=== PATIENT | female | born 1970 | race African-American/Black ===

== ENCOUNTER 2016-10-10 11:25 | Outpatient (CLI) | payer MEDICARE, MEDICAID ==
[2016-10-10 13:59] LABS: Anion Gap 16 mmol/L (10-20); BUN (Urea Nitrogen) 16 mg/dL (7.0-18.7); Calc. Creatinine Clearance 0 mL/min (70-130); Calcium 9.5 mg/dL (7.8-10.44); Carbon Dioxide 31 mmol/L (22-29); Chloride 96 mmol/L (98-107); Estimated GFR-MDRD 85
--- NOTE | 2016-10-10 16:05 | ULT ---
RIGHT UPPER QUADRANT ULTRASOUND: Date: 10-10-16 Technique: Ultrasonography of the right upper quadrant of the abdomen was performed for evaluation of right upper quadrant pain. Documentary images and worksheets were provided and reviewed. FINDINGS: The liver is large, measuring 19 cm in oblique sagittal dimension. Gallbladder is not seen optimall y, internally there is no gross mass or dilated ducts. What appears to be the gallbladder is small and contracted and shadowing. This is presumed to be a small contracted gallbladder full of stones. The common bile duct was borderline in size at 5-6 mm. The right kidney appears normal and was 11 .2 cm long. The aorta is normal in caliber. Only a part of the pancreas was visible in the midline . The visible portion appears normal. Doppler flow of the portal vein shows portal venous flow goi ng towards the liver as expected. IMPRESSION: 1. Gallbladder not clearly seen but an area of intense shadowing is seen in the gallbladder fossa, presumed to be a small contracted gallbladder full of stones. 2. The liver is enlarged. POS: HOME
== END 2016-10-10 11:26 | disposition home or self-care (01) ==
LOC: BURULT 11:25
PROVIDERS: ATTEND Family Medicine
DX: R10.11 Right upper quadrant pain (principal); Z79.899 Other long term (current) drug therapy; R16.0 Hepatomegaly, not elsewhere classified
CPT/HCPCS: 36415; 76705; 80048

== ENCOUNTER 2016-10-13 19:58 | Emergency (ER) | payer MEDICARE, MEDICAID ==
[2016-10-13 20:57] LABS: ALT (SGPT) 26 U/L (0-55); AST (SGOT) 29 U/L (5-34); Alkaline Phosphatase 209 U/L (40-150); Anion Gap 13 mmol/L (10-20); BUN (Urea Nitrogen) 15 mg/dL (7.0-18.7); Bilirubin, Total 0.4 mg/dL (0.2-1.2); Calc. Creatinine Clearance 0 mL/min (70-130); Calcium 8.8 mg/dL (7.8-10.44); Carbon Dioxide 28 mmol/L (22-29); Chloride 101 mmol/L (98-107); Estimated GFR-MDRD Greater than 90; Globulin 4.3 g/dL (2.4-3.5); Protein, Total 7.9 g/dL (6.0-8.3)
[2016-10-13 20:59] LABS: Troponin I 0.059 ng/mL (< 0.028)
[2016-10-13] MEDS ORDERED: Potassium Chloride 20 MEQ TAB ONE (21:08)
[2016-10-13 21:09] LABS: #Eosinphils 0.1 thou/uL (0.0-0.7); #Monocytes 0.7 thou/uL (0.11-0.59); #Neutrophils 4.2 thou/uL (1.40-6.50); %Basophils 0.6 % (0.0-1.0); %Eosinophils 1.3 % (0.0-10.0); %Monocytes 11.3 % (0.0-10.0); Hematocrit 40.1 % (36.0-47.0); Mean Platelet Volume 6.9 fL (7.4-10.4); White Blood Cell (WBC) Count 5.9 thou/uL (4.8-10.8)
[2016-10-13 21:10] LABS: Crenated RBC SLIGHT = 1-5 cells (100X) (None Seen); Elliptocytes MODERATE= 6-15 cells (100X) (0-1/hpf); Hypochromia SLIGHT = 6-15 cells (100X) (0-5/hpf); Polychromasia SLIGHT = 2-3 cells (100X) (0-2/hpf); Schistocytes SLIGHT = 2-5 cells (100X) (0-1/hpf)
[2016-10-13] MEDS ORDERED: Phenytoin Sodium 100 MG/2 ML VIAL ONE (21:17)
--- NOTE | 2016-10-13 22:06 | ERRECORD ---
[facility] EMERGENCY RECORD HPI SEIZURE (20:21 [facility]) CHIEF COMPLAINT: Patient presents for evaluation of seizure. HISTORIAN: History provided by patient, 46F presents to the ED with reports of two seizures that occurred today. States she has had increased seizures over the past week, and reports that she saw her PMD who ordered a Dilantin level, but she does not know the results yet. She denies chest pain or shortness of breath. First seizure occurred while she was in bed, the second in the shower. She denies hitting her head. Unwitnessed. States the aura felt similar to other seizures she has had. Denies traumatic injury. LOCATION: Symptoms are generalized. QUALITY: Seizure quality described as grand-mal, multiple episodes. TIME COURSE: Sudden onset of symptoms, Symptoms are improving, are intermittent. ASSOCIATED WITH: No associated symptoms, Denies any other complaints. RELIEVED BY: Nothing tried for relief. [facility] ([facility] CONSTITUTIONAL: Negative constitutional review of systems, Historian denies chills, denies fever. EYES: Negative eye review of systems, Historian denies eye pain, denies vision changes. ENT: Negative ears, nose, throat review of systems, Historian denies rhinorrhea, denies sore throat, denies voice changes. CARDIOVASCULAR: Negative cardiovascular review of systems, Historian denies chest pain, denies palpitations. RESPIRATORY: Negative respiratory review of systems, Historian denies cough, denies shortness of breath. GI: Negative gastrointestinal review of systems, Historian denies abdominal pain, denies constipation, denies diarrhea, denies nausea, denies vomiting. GENITOURINARY FEMALE: Negative genitourinary review of systems, Historian denies dysuria, denies frequency. MUSCULOSKELETAL: Negative musculoskeletal review of systems, Historian denies back pain, denies fall, denies injury. SKIN: Negative skin review of systems, Historian denies rash, denies skin changes. NEUROLOGIC: Historian reports seizures, denies mental status changes, Historian denies paralysis, Historian denies headache, Historian denies paresthesias, Historian denies sensory changes. HEMO/LYMPHATIC: Normal hematologic/lymphatic system review, Historian denies abnormal blood clotting. ALLERGIC/IMMUNOLOGIC: Normal allergy/immunologic system review, Historian denies frequent infections. PAST MEDICAL HISTORY (20:12 [place]) MEDICAL HISTORY: Flu vaccine not up to date, Tetanus immunization up to date, Pneumococcal vaccine up to date, Flu &a-1R&a+25V*p+0X*[id number]*c202B*c15G*c2P*p-0X&a-25V&a+1R Name: Alberta Patricio : 1970 F46 MedRec: [id number] AcctNum: [id number] Prepared: Fei Oct 14, 2016 00:20 by Interface Page 1 of 4 pMD [facility] EMERGENCY RECORD vaccine not up to date, Tetanus not up to date, Pneumococcal vaccine not up to date, Past medical history includes cardiac history, arrhythmia, atrial fibrillation, Past medical history includes history of hyperlipidemia, Past medical history includes history of hypertension.PEPTIC ULCERS, SEIZURES (LAST ONE AUGUST 2015), TIA 2014,. REVIEWED 10/13/16. FEMALE SURGICAL HISTORY: 2 brain surgery Pacemaker placed March 2016 Hip surgery. REVIEWED 10/13/16. PSYCHIATRIC HISTORY: Psychiatric history includes, anxiety, bipolar disorder, depression, Psychiatric history includes patient currently being under outpatient treatment. REVIEWED 10/13/16. SOCIAL HISTORY: Patient denies alcohol use, Patient denies drug use, Patient has no smoking history, Lives at home, with family. REVIEWED 10/13/16. FAMILY HISTORY: Family history is non-contributory to this case. REVIEWED 10/13/16. KNOWN ALLERGIES No Known Allergies (Unconfirmed) No Known Drug Allergies CURRENT MEDICATIONS No recorded medications VITAL SIGNS VITAL SIGNS: BP: 83/58, Pulse: 92, Resp: 19, Temp: 97.7 (Oral), Pain: 0, O2 sat: 99 on Room Air, Time: 10/13/2016 20:06. (20:06 MVIL) BP: 96/70, Pulse: 90, Resp: 20, O2 sat: 99 on Room Air, Time: 10/13/2016 21:49. (21:49 MVIL) BP: 102/62, Pulse: 72, Resp: 20, O2 sat: 99 on Room Air, Time: 10/13/2016 21:50. (21:50 MVIL) PHYSICAL EXAM (20:24 [facility]) CONSTITUTIONAL: Vital signs reviewed, Patient afebrile, Pulse normal, Blood pressure, hypotensive, Respiratory rate normal, Patient appears non toxic, Patient appears pain free, Patient alert and oriented to person, place and time. HEAD: Head exam normal, Head exam included findings of head atraumatic, normocephalic. EYES: Eye exam normal, Eye exam included findings of eyelids normal to inspection, Pupils equally round and reactive to light, Extraocular muscles intact, no nystagmus. ENT: ENT exam normal, Ear exam normal, external ear normal, tympanic membranes normal, no bleeding, Pharynx exam normal, Uvula exam normal, Tonsil exam normal, Mouth exam normal, mucous membranes moist, teeth normal. NECK: Neck exam normal, Neck exam included findings of normal range of motion, Trachea midline, no meningeal signs, no cervical adenopathy, no tenderness. &a-1R&a+25V*p+0X*x5194V*c202B*c15G*c2P*p-0X&a-25V&a+1R Name: Alberta Patricio : 1970 F46 MedRec: [id number] AcctNum: [id number] Prepared: Fei Oct 14, 2016 00:20 by Interface Page 2 of 4 pMD [facility] EMERGENCY RECORD RESPIRATORY CHEST: Respiratory and chest exam normal, Respiratory exam included findings of no respiratory distress, Breath sounds clear. CARDIOVASCULAR: Cardiovascular assessment normal, Cardiovascular exam included findings of heart rate regular rate and rhythm, Heart sounds normal. ABDOMEN FEMALE: Abdominal exam included findings of abdomen nontender, Bowel sounds normal, no distension, no mass, no pulsatile masses, no peritoneal signs, no rigidity, no guarding, no rebound, Rovsing's sign absent. BACK: Back exam normal, Back exam included findings of normal inspection, range of motion normal, no tenderness. UPPER EXTREMITY: Upper extremity exam normal, Upper extremity exam included findings of inspection normal, Range of motion normal, Motor strength normal, Sensation intact, Radial pulse normal. LOWER EXTREMITY: Lower extremity exam normal, Lower extremity exam included findings of inspection normal, Range of motion normal, Motor strength normal, Sensation intact, Posterior tibial pulse normal, Pedal pulse normal. NEURO: Neuro exam normal, Neuro exam findings include patient oriented to person, place and time, Speech normal, Gait normal, Cranial nerves intact, no focal motor deficits, no focal sensory deficits. SKIN: Skin exam normal, Skin exam included findings of skin warm, dry, and normal in color, no rash. PSYCHIATRIC: Psychiatric exam normal, Normal affect. EKG INTERPRETATION (20:25 [facility]) 12 LEAD EKG INTERPRETATION: 12 lead EKG interpreted by Emergency Department Physician at time of study, atrial sensed v paced rhythm. MEDICATION ADMINISTRATION SUMMARY Drug Name: ondansetron HCl intravenous, Dose Ordered: 4 mg, Route: IV Push, Status: Given, Time: 22:18 10/13/2016, Drug Name: Dilantin oral, Dose Ordered: 300 mg, Route: Oral, Status: Given, Time: 21:49 10/13/2016, Drug Name: *sodium chloride 0.9 % intravenous, Dose Ordered: 500 mL, Route: IV Fluid Infusion, Status: Given, Time: 21:13 10/13/2016, Drug Name: potassium chloride oral, Dose Ordered: 40 mEq, Route: Oral, Status: Given, Time: 21:12 10/13/2016, *Additional information available in notes, Detailed record available in Medication Service section. DOCTOR NOTES (21:58 [facility]) TEXT: Patient after a seizure episode. She was neurologically intact during her visit without postictal signs. After a full work up, the notable findings include hypokalemia, a mild troponin increase, and hypotension that resolved with IV fluids. I &a-1R&a+25V*p+0X*[id number]*c202B*c15G*c2P*p-0X&a-25V&a+1R Name: Alberta Patricio : 1970 F46 MedRec: [id number] AcctNum: [id number] Prepared: Fei Oct 14, 2016 00:20 by Interface Page 3 of 4 pMD [facility] EMERGENCY RECORD believe the troponin is likely baseline, and without chest pain or EKG changes, I do not believe that it likely represents ACS. The hypokalemia is unlikely to be related to her presenting complaints. I was concerned about her presenting hypotension, which I believe is medication induced based on the lack of reflex tachycardia. She has no evidence of infection. She reported dizziness/weakness throughout the day, and I believe it is possible that the hypotension is causing the weakness and possibly triggering the increase in seizures. I have advised holding antihypertensives until she can be seen by her stay cutter, and increasing Dilantin to 300mg BID from 300mg in the morning and 200mg at night. patient demonstrated excellent understanding and will make follow up apponitments. PATIENT STATUS: Patient has improved since arrival to emergency department. PATIENT PLAN: The patient will be discharged, The patient will follow up with primary care physician. DATA REVIEWED: Lab data reviewed, Xray data reviewed, Reviewed EKG. PROBLEM LIST No recorded problems DIAGNOSIS (22:14 SHREYA) FINAL: PRIMARY: Seizure, ADDITIONAL: HYPOTENSION UNSPECIFIED. PRESCRIPTION No recorded prescriptions DISPOSITION PATIENT: Disposition Type: Discharge, Disposition: *Discharge Home. (22:14 SHREYA) Patient left the department. (22:31 ORESTES) Solitario: SHREYA=MD Pooja, Noe MVIL=ALEKSANDRA Hensley, Chasity &a-1R&a+25V*p+0X*h9304F*c202B*c15G*c2P*p-0X&a-25V&a+1R Name: Alberta Patricio Bhupinder : 1970 F46 MedRec: [id number] AcctNum: [id number] Prepared: Fei Oct 14, 2016 00:20 by Interface Page 4 of 4 pMD [facility]
--- NOTE | 2016-10-13 22:12 | PICIS ---
[facility] EMERGENCY RECORD TRIAGE (ThuOct 13, 2016 20:06 MVIL) TRIAGE NOTES: C/O TWO SEIZURE EPISODES TODAY UNWITNESSED. (ThuOct 13, 2016 20:06 MVIL) PATIENT: NAME: Alberta Patricio, AGE: 46, GENDER: female, : Thu1970, TIME OF GREET: ThuOct 13, 2016 19:58, PREFERRED LANGUAGE: Dutch, ETHNICITY: Not or , ECODE BILLING MAP: [facility], SSN: [id number], Zip Code: [address], KG WEIGHT: 127.01, HEIGHT/LENGTH: 165.10cm, BMI: 46.59, PHONE: , , , PERSON ID: [id number], PAYMENT: [employer], PCP: DO BELL JOHN SCOTT. (ThuOct 13, 2016 20:06 MVIL) COMPLAINT: SEIZURE. (ThuOct 13, 2016 20:06 MVIL) ADMISSION: URGENCY: 3 Urgent, ADMISSION SOURCE: Home, TRANSPORT: CAR, BED: ER -04. (ThuOct 13, 2016 20:06 MVIL) ASSESSMENT: Assessment: C/O TWO SEIZURE EPISODES TODAY; ONE EPISODE AT 2PM AND ANOTHER AT 7:30PM. PATIENT IS ON DILANTIN MED., Symptoms began 10/13/2016 20:13, Symptoms began 1 hour ago. (20:12 MVIL) PAIN: No complaint of pain. (20:13 MVIL) IMMUNIZATIONS: Flu vaccine not up to date, Tetanus immunization up to date, Pneumococcal vaccine up to date. (20:14 MVIL) SIRS SCORING: Heart Rate 55-109 (0), Temp range 96.8-101.1 (0), respiratory rate 12-24 (0), Mental Status altered: no (0). (20:14 MVIL) TRIAGE SCREENING: Patient denies suicidal ideation, Patient denies presence of domestic violence. (20:14 MVIL) PROVIDERS: TRIAGE NURSE: Chasity Hensley RN. (ThuOct 13, 2016 20:06 MVIL) VITAL SIGNS: BP 83/58, Pulse 92, Resp 19, Temp 97.7, (Oral), Pain 0, O2 Sat 99, on Room Air, Time 10/13/2016 20:06. (20:06 MVIL) PREVIOUS VISIT ALLERGIES: No Known Drug Allergies. (ThuOct 13, 2016 20:06 MVIL) No Known Drug Allergies. (20:12 MVIL) KNOWN ALLERGIES No Known Allergies (Unconfirmed) No Known Drug Allergies CURRENT MEDICATIONS No recorded medications VITAL SIGNS VITAL SIGNS: BP: 83/58, Pulse: 92, Resp: 19, Temp: 97.7 (Oral), Pain: 0, O2 sat: 99 on Room Air, Time: 10/13/2016 20:06. (20:06 MVIL) BP: 96/70, Pulse: 90, Resp: 20, O2 sat: 99 on Room Air, Time: 10/13/2016 21:49. (21:49 MVIL) BP: 102/62, Pulse: 72, Resp: 20, O2 sat: 99 on Room Air, Time: 10/13/2016 21:50. (21:50 MVIL) &a-1R&a+25V*p+0X*p3042U*c202B*c15G*c2P*p-0X&a-25V&a+1R Name: Alberta Patricio : 1970 F46 MedRec: [id number] AcctNum: [id number] Prepared: ThuOct 14, 2016 00:26 by Interface Page 1 of 9 pMD [facility] EMERGENCY RECORD NURSING ASSESSMENT: SEIZURE (20:46 MVIL) NURSING DIAGNOSIS: Nursing diagnosis: SEIZURE. CONSTITUTIONAL: Patient arrives, via hospital wheelchair, STATES HAS UNSTEADY GAIT, Unsteady gait, Assistance to cart, History obtained from patient, Patient appears comfortable, Patient cooperative, Patient alert, Oriented to person, place and time, Skin warm, Skin dry, Skin normal in color, Mucous membranes pink, Mucous membranes moist, Patient is well-groomed, Patient complains of SEIZURE EPISODES X 2 TODAY, ONCE AT 2PM AND ANOTHER AT 7:30PM. BOTH UNWITNESSED AND PATIENT UNABLE TO TELL DURATION OF EACH EPISODE. PATIENT ON DILANTIN MED. WAS RECENTLY AT PMD'S ON THURSDAY AND DILANTIN LEVEL DONE THERE BUT HAS NOT RECEIVED RESULTS BACK FROM THEM YET. PAIN: Patient rates pain as 0 out of 10. SEIZURE: History of seizures, Date of last seizure 10/13/2016 20:49. ENT: no drainage from ears, Dizziness, described as room spinning. SAFETY: Side rails up, Cart/Stretcher in lowest position, Family at bedside, Call light within reach, Hospital ID band on. NURSING PROCEDURE: DISCHARGE NOTE (22:20 MVIL) DISCHARGE: Patient discharged to home, ambulating without assistance, family driving, accompanied by other family member, Summary of Care printed/ provided, Patient requested and was provided an electronic copy of Discharge Instructions, Transition record given to patient, Discharge instructions given to patient, Above person(s) verbalized understanding of discharge instructions and follow-up care. BELONGINGS: Belongings and valuables with patient at time of discharge include:. NURSING PROCEDURE: IV (20:32 MVIL) PATIENT IDENITIFIER: Patient actively involved in identification process, Patient's identity verified by patient stating name, Patient's identity verified by hospital ID bracelet. IV SITE 1: IV therapy indicated for hydration, IV established, to the right antecubital, using a 20 gauge catheter, in one attempt, Saline lock established, Flushed with normal saline (mls): 10MLS, Labs drawn at time of placement, labeled in the presence of the patient and sent to lab. FOLLOW-UP SITE 1: After procedure, 2x3 ensure dressing applied, After procedure, IV line connections checked and properly labeled, After procedure, no drainage at IV site, After procedure, no swelling at IV site, After procedure, no redness at IV site. ORDER DETAILS Order Name: Cardiac Profile w/CKMB & Troponin - I, Status: Active, Time: 20:15 10/13/2016, User: SHREYA, &a-1R&a+25V*p+0X*f0645C*c202B*c15G*c2P*p-0X&a-25V&a+1R Name: Alberta Patricio : 1970 F46 MedRec: [id number] AcctNum: [id number] Prepared: ThuOct 14, 2016 00:26 by Interface Page 2 of 9 pMD [facility] EMERGENCY RECORD - Ordered for: MD Patton Jason, - Entered by: MD Patton Jason - [facility] Oct 13, 2016 20:15, - Quantity: 1, Order Name: CBC with Differential, Status: Active, Time: 20:15 10/13/2016, User: SHREYA, - Ordered for: MD Patton Jason, - Entered by: MD Patton Jason - [facility] Oct 13, 2016 20:15, - Quantity: 1, Order Name: Comprehensive Metabolic Panel, Status: Active, Time: 20:15 10/13/2016, User: SHREYA, - Ordered for: MD Patton Jason, - Entered by: MD Patton Jason - [facility] Oct 13, 2016 20:15, - Quantity: 1, Order Name: Dilantin, Status: Active, Time: 20:18 10/13/2016, User: SHREYA, - Ordered for: MD Patton Jason, - Entered by: MD Patton Jason [facility] Oct 13, 2016 20:18, - Quantity: 1, Order Name: EKG 12 Lead in Emergency Room, Status: Active, Time: 20:15 10/13/2016, User: SHREYA, - Ordered for: MD Patton Jason, - Entered by: MD Patton Jason [facility] Oct 13, 2016 20:15, - Quantity: 1, Order Name: SALINE LOCK, Status: Done, Time: 20:30 10/13/2016, User: ORESTES, - Ordered for: MD Patton Jason, - Entered by: MD Patton Jason - [facility] Oct 13, 2016 20:15, - Quantity: 1. MEDICATION ADMINISTRATION SUMMARY Drug Name: ondansetron HCl intravenous, Dose Ordered: 4 mg, Route: IV Push, Status: Given, Time: 22:18 10/13/2016, Drug Name: Dilantin oral, Dose Ordered: 300 mg, Route: Oral, Status: Given, Time: 21:49 10/13/2016, Drug Name: *sodium chloride 0.9 % intravenous, Dose Ordered: 500 mL, Route: IV Fluid Infusion, Status: Given, Time: 21:13 10/13/2016, Drug Name: potassium chloride oral, Dose Ordered: 40 mEq, Route: Oral, Status: Given, Time: 21:12 10/13/2016, *Additional information available in notes, Detailed record available in Medication Service section. MEDICATION SERVICE Dilantin oral: Order: Dilantin oral (phenytoin sodium extended) - Dose: 300 mg : Oral Ordered by: Noe Patton MD Entered by: Noe Patton MD ThuOct 13, 2016 21:11 Documented as given by: Chasity Hensley RN ThuOct 13, 2016 21:49 Patient, Medication, Dose, Route and Time verified prior to &a-1R&a+25V*p+0X*l5172I*c202B*c15G*c2P*p-0X&a-25V&a+1R Name: Alberta Patricio : 1970 F46 MedRec: [id number] AcctNum: [id number] Prepared: ThuOct 14, 2016 00:26 by Interface Page 3 of 9 pMD [facility] EMERGENCY RECORD administration. Amount given: 300MG, Correct patient, time, route, dose and medication confirmed prior to administration, Patient advised of actions and side-effects prior to administration, Allergies confirmed and medications reviewed prior to administration, Patient in position of comfort, Side rails up, Cart in lowest position, Family at bedside. ondansetron HCl intravenous: Order: ondansetron HCl intravenous (ondansetron HCl) - Dose: 4 mg : IV Push Schedule: Now Ordered by: Noe Patton MD Entered by: Chasity Hensley RN ThuOct 13, 2016 22:26 Documented as given by: Chasity Henslye RN ThuOct 13, 2016 22:18 Patient, Medication, Dose, Route and Time verified prior to administration. Amount given: 4MG, IV SITE #1 IVP, initial medication, Catheter placement confirmed via flush prior to administration, IV site without signs or symptoms of infiltration during medication administration, No swelling during administration, No drainage during administration, IV flushed after administration, Correct patient, time, route, dose and medication confirmed prior to administration, Patient advised of actions and side-effects prior to administration, Allergies confirmed and medications reviewed prior to administration, Patient in position of comfort, Side rails up, Cart in lowest position, Family at bedside. potassium chloride oral: Order: potassium chloride oral (potassium chloride) - Dose: 40 mEq : Oral Ordered by: Noe Patton MD Entered by: Noe Patton MD ThuOct 13, 2016 21:07 Documented as given by: Chasity Hensley RN ThuOct 13, 2016 21:12 Patient, Medication, Dose, Route and Time verified prior to administration. Amount given: 40MEQ, Correct patient, time, route, dose and medication confirmed prior to administration, Patient advised of actions and side-effects prior to administration, Allergies confirmed and medications reviewed prior to administration, Patient in position of comfort, Side rails up, Cart in lowest position, Family at bedside. sodium chloride 0.9 % intravenous: Order: sodium chloride 0.9 % intravenous (0.9 % sodium chloride) - Dose: 500 mL : IV Fluid Infusion Notes: (Bolus) Ordered by: Noe Patton MD Entered by: Noe Patton MD ThuOct 13, 2016 21:06 Documented as given by: Chasity Hensley RN ThuOct 13, 2016 21:13 Patient, Medication, Dose, Route and Time verified prior to administration. &a-1R&a+25V*p+0X*q4100O*c202B*c15G*c2P*p-0X&a-25V&a+1R Name: Alberta Patricio : 1970 F46 MedRec: [id number] AcctNum: [id number] Prepared: ThuOct 14, 2016 00:26 by Interface Page 4 of 9 D [facility] EMERGENCY RECORD Amount given: 500ML, IV SITE #1 IV fluids established for hydration, IV SITE #1 into right antecubital, via primary tubing, IV SITE #1 Tubing changed to pump tubing, Catheter placement confirmed via flush prior to administration, IV site without signs or symptoms of infiltration during medication administration, No swelling during administration, No drainage during administration, IV flushed after administration, Correct patient, time, route, dose and medication confirmed prior to administration, Patient advised of actions and side-effects prior to administration, Allergies confirmed and medications reviewed prior to administration, Patient in position of comfort, Side rails up, Cart in lowest position, Family at bedside. : Follow Up : _IV SITE #1:_, IV fluid infusion discontinued, on ThuOct 13, 2016 22:15, Total fluid hydration time IV site 1 1 hour, 5 minutes, ., Total amount infused: 500MLS, IV Discontinued with catheter intact. (22:15 MVIL) HPI SEIZURE (20:21 [facility]) CHIEF COMPLAINT: Patient presents for evaluation of seizure. HISTORIAN: History provided by patient, 46F presents to the ED with reports of two seizures that occurred today. States she has had increased seizures over the past week, and reports that she saw her PMD who ordered a Dilantin level, but she does not know the results yet. She denies chest pain or shortness of breath. First seizure occurred while she was in bed, the second in the shower. She denies hitting her head. Unwitnessed. States the aura felt similar to other seizures she has had. Denies traumatic injury. LOCATION: Symptoms are generalized. QUALITY: Seizure quality described as grand-mal, multiple episodes. TIME COURSE: Sudden onset of symptoms, Symptoms are improving, are intermittent. ASSOCIATED WITH: No associated symptoms, Denies any other complaints. RELIEVED BY: Nothing tried for relief. ROS (20:24 [facility]) CONSTITUTIONAL: Negative constitutional review of systems, Historian denies chills, denies fever. EYES: Negative eye review of systems, Historian denies eye pain, denies vision changes. ENT: Negative ears, nose, throat review of systems, Historian denies rhinorrhea, denies sore throat, denies voice changes. CARDIOVASCULAR: Negative cardiovascular review of systems, Historian denies chest pain, denies palpitations. RESPIRATORY: Negative respiratory review of systems, Historian denies cough, denies shortness of breath. GI: Negative gastrointestinal review of systems, Historian denies abdominal pain, denies constipation, denies diarrhea, denies nausea, denies vomiting. GENITOURINARY FEMALE: Negative genitourinary review of systems, Historian denies dysuria, denies frequency. &a-1R&a+25V*p+0X*j1323I*c202B*c15G*c2P*p-0X&a-25V&a+1R Name: Alberta Patricio : 1970 F46 MedRec: [id number] AcctNum: [id number] Prepared: ThuOct 14, 2016 00:26 by Interface Page 5 of 9 pMD [facility] EMERGENCY RECORD MUSCULOSKELETAL: Negative musculoskeletal review of systems, Historian denies back pain, denies fall, denies injury. SKIN: Negative skin review of systems, Historian denies rash, denies skin changes. NEUROLOGIC: Historian reports seizures, denies mental status changes, Historian denies paralysis, Historian denies headache, Historian denies paresthesias, Historian denies sensory changes. HEMO/LYMPHATIC: Normal hematologic/lymphatic system review, Historian denies abnormal blood clotting. ALLERGIC/IMMUNOLOGIC: Normal allergy/immunologic system review, Historian denies frequent infections. PAST MEDICAL HISTORY (20:12 [place]) MEDICAL HISTORY: Flu vaccine not up to date, Tetanus immunization up to date, Pneumococcal vaccine up to date, Flu vaccine not up to date, Tetanus not up to date, Pneumococcal vaccine not up to date, Past medical history includes cardiac history, arrhythmia, atrial fibrillation, Past medical history includes history of hyperlipidemia, Past medical history includes history of hypertension.PEPTIC ULCERS, SEIZURES (LAST ONE AUGUST 2015), TIA 2014,. REVIEWED 10/13/16. FEMALE SURGICAL HISTORY: 2 brain surgery Pacemaker placed March 2016 Hip surgery. REVIEWED 10/13/16. PSYCHIATRIC HISTORY: Psychiatric history includes, anxiety, bipolar disorder, depression, Psychiatric history includes patient currently being under outpatient treatment. REVIEWED 10/13/16. SOCIAL HISTORY: Patient denies alcohol use, Patient denies drug use, Patient has no smoking history, Lives at home, with family. REVIEWED 10/13/16. FAMILY HISTORY: Family history is non-contributory to this case. REVIEWED 10/13/16. PH[facility] EXAM (20:24 [facility] CONSTITUTIONAL: Vital signs reviewed, Patient afebrile, Pulse normal, Blood pressure, hypotensive, Respiratory rate normal, Patient appears non toxic, Patient appears pain free, Patient alert and oriented to person, place and time. HEAD: Head exam normal, Head exam included findings of head atraumatic, normocephalic. EYES: Eye exam normal, Eye exam included findings of eyelids normal to inspection, Pupils equally round and reactive to light, Extraocular muscles intact, no nystagmus. ENT: ENT exam normal, Ear exam normal, external ear normal, tympanic membranes normal, no bleeding, Pharynx exam normal, Uvula exam normal, Tonsil exam normal, Mouth exam normal, mucous membranes moist, teeth normal. NECK: Neck exam normal, Neck exam included findings of normal range of motion, Trachea midline, no meningeal signs, no cervical &a-1R&a+25V*p+0X*e8466E*c202B*c15G*c2P*p-0X&a-25V&a+1R Name: Alberta Patricio : 1970 F46 MedRec: [id number] AcctNum: [id number] Prepared: ThuOct 14, 2016 00:26 by Interface Page 6 of 9 pMD [facility] EMERGENCY RECORD adenopathy, no tenderness. RESPIRATORY CHEST: Respiratory and chest exam normal, Respiratory exam included findings of no respiratory distress, Breath sounds clear. CARDIOVASCULAR: Cardiovascular assessment normal, Cardiovascular exam included findings of heart rate regular rate and rhythm, Heart sounds normal. ABDOMEN FEMALE: Abdominal exam included findings of abdomen nontender, Bowel sounds normal, no distension, no mass, no pulsatile masses, no peritoneal signs, no rigidity, no guarding, no rebound, Rovsing's sign absent. BACK: Back exam normal, Back exam included findings of normal inspection, range of motion normal, no tenderness. UPPER EXTREMITY: Upper extremity exam normal, Upper extremity exam included findings of inspection normal, Range of motion normal, Motor strength normal, Sensation intact, Radial pulse normal. LOWER EXTREMITY: Lower extremity exam normal, Lower extremity exam included findings of inspection normal, Range of motion normal, Motor strength normal, Sensation intact, Posterior tibial pulse normal, Pedal pulse normal. NEURO: Neuro exam normal, Neuro exam findings include patient oriented to person, place and time, Speech normal, Gait normal, Cranial nerves intact, no focal motor deficits, no focal sensory deficits. SKIN: Skin exam normal, Skin exam included findings of skin warm, dry, and normal in color, no rash. PSYCHIATRIC: Psychiatric exam normal, Normal affect. LAB INTERPRETATION (21:57 [facility]) INTERPRETATION: I reviewed the lab results, CBC normal, Chemistry abnormal, Potassium decreased, Cardiac enzymes abnormal, Troponin elevated, apparently always elevated. EVENTS TRANSFER: Triage to Emergency Emergency Room -04. (ThuOct 13, 2016 20:06 MVIL) Removed from Emergency Emergency Room -04. (22:31 MVIL) EKG INTERPRETATION (20:25 JJAC) 12 LEAD EKG INTERPRETATION: 12 lead EKG interpreted by Emergency Department Physician at time of study, atrial sensed v paced rhythm. DOCTOR NOTES (21:58 [facility]) TEXT: Patient after a seizure episode. She was neurologically intact during her visit without postictal signs. After a full work up, the notable findings include hypokalemia, a mild troponin increase, and hypotension that resolved with IV fluids. I believe the troponin is likely baseline, and without chest pain or &a-1R&a+25V*p+0X*p3584H*c202B*c15G*c2P*p-0X&a-25V&a+1R Name: Alberta Patricio : 1970 F46 MedRec: [id number] AcctNum: [id number] Prepared: shalom Oct 14, 2016 00:26 by Interface Page 7 of 9 pMD [facility] EMERGENCY RECORD EKG changes, I do not believe that it likely represents ACS. The hypokalemia is unlikely to be related to her presenting complaints. I was concerned about her presenting hypotension, which I believe is medication induced based on the lack of reflex tachycardia. She has no evidence of infection. She reported dizziness/weakness throughout the day, and I believe it is possible that the hypotension is causing the weakness and possibly triggering the increase in seizures. I have advised holding antihypertensives until she can be seen by her performance makeup artist, and increasing Dilantin to 300mg BID from 300mg in the morning and 200mg at night. patient demonstrated excellent understanding and will make follow up apponitments. PATIENT STATUS: Patient has improved since arrival to emergency department. PATIENT PLAN: The patient will be discharged, The patient will follow up with primary care physician. DATA REVIEWED: Lab data reviewed, Xray data reviewed, Reviewed EKG. PROBLEM LIST No recorded problems [facility]AG[facility]IS (22:14 [facility] FINAL: PRIMARY: Seizure, ADDITIONAL: HYPOTENSION UNSPECIFIED. DISPOSITION PATIENT: Disposition Type: Discharge, Disposition: *Discharge Home. (22:14 [facility]) Patient left the department. (22:31 MVIL) INSTRUCTION (22:15 [facility]) DISCHARGE: RECURRENT SEIZURE ADULT, HYPOTENSION, ALL CAUSES. FOLLOWUP: DO BELL JOHN SCOTT, [facility], [address] [place] [address], . SPECIAL: Stop the Carvedilol and Lisinopril until you talk to your performance makeup artist. Increase Dilantin to 300mg twice a day. PRESCRIPTION No recorded prescriptions IMAGING *EKG: Image captured from scanner. (20:21 MVIL) *DISCHARGE INSTRUCTIONS RECEIPT: Image captured from scanner. (22:23 MVIL) *SUPPLY CHARGE SHEET: Image captured from scanner. (22:23 MVIL) ADMIN DIGITAL SIGNATURE: MD Patton Jason. (22:02 [facility]) MD Patton Jason. (22:15 [facility]) MD Patton Jason. (ThuOct 14, 2016 00:17 [facility]) &a-1R&a+25V*p+0X*d1141V*c202B*c15G*c2P*p-0X&a-25V&a+1R Name: Alberta Patricio : 1970 F46 MedRec: [id number] AcctNum: [id number] Prepared: ThuOct 14, 2016 00:26 by Interface Page 8 of 9 pMD [facility] EMERGENCY RECORD RESULTS (21:04 MVIL) LABORATORY: Comprehensive Metabolic Panel Collection DT: ThuOct 13, 2016 20:35, Sodium 139 mmol/L, Range (136-145), *Potassium 3.1 - L mmol/L, Range (3.5-5.1), Chloride 101 mmol/L, Range (98-107), Carbon Dioxide 28 mmol/L, Range (22-29), Anion Gap 13 mmol/L, Range (10-20), BUN (Urea Nitrogen) 15 mg/dL, Range (7.0-18.7), Creatinine 0.81 mg/dL, Range (0.6-1.1), Estimated GFR-MDRD Greater than 90 , Reference Range for Estimated GFR: Greater than 90, mL/min/1.73 m2 NOTE: The MDRD equation has not been validated for use, with the elderly (over 70 years of age), women, patients with, serious comorbid condition or persons with extremes of body size, muscle, mass, or nutritional status. , *Glucose 108 - H mg/dL, Range (70-105), Calcium 8.8 mg/dL, Range (7.8-10.44), Bilirubin, Total 0.4 mg/dL, Range (0.2-1.2), Protein, Total 7.9 g/dL, Range (6.0-8.3), NOTE: Plasma values are generally 0.3 to 0.5 g/dL higher than serum values, due to the presence of fibrinogen. , Albumin 3.6 g/dL, Range (3.5-5.0), *Globulin 4.3 - H g/dL, Range (2.4-3.5), *Alb/Glob Ratio 0.8 - L g/dL, Range (1.2-2.2), *Alkaline Phosphatase 209 - H U/L, Range (40-150), AST (SGOT) 29 U/L, Range (5-34), ALT (SGPT) 26 U/L, Range (0-55). Cardiac Profile w/CKMB & TropI Collection DT: ThuOct 13, 2016 20:35, CKMB 1.0 ng/mL, Range (0-6.6), *Troponin I 0.059 - H ng/mL, Range (< 0.028), Reference Range , 0.00 - 0.028 ng/mL Negative 0.029 - 0.29 ng/mL , Indeterminate Greater or Equal to 0.3 ng/mL Strongly suggests ID , . Dilantin Collection DT: ThuOct 13, 2016 20:35, Dilantin 10.0 ug/mL, Range (10.0-20.0), Therapeutic Range: 10.0 - 20.0 mcg/mL Toxic Range: Greater than 30.0, mcg/mL . Solitario: BELKISC=MD Pooja, Noe MVIL=ALEKSANDRA Hensley, Chasity &a-1R&a+25V*p+0X*s9196A*c202B*c15G*c2P*p-0X&a-25V&a+1R Name: Alberta Patricio : 1970 F46 MedRec: [id number] AcctNum: [id number] Prepared: Fei Oct 14, 2016 00:26 by Interface Page 9 of 9 pMD MTDD
[2016-10-13] MEDS ORDERED: Ondansetron HCl/PF 4 MG/2 ML Vial ONE (22:18)
== END 2016-10-13 22:20 | disposition home or self-care (01) ==
LOC: BURERS 19:58
DX: R56.9 Unspecified convulsions (principal); I95.9 Hypotension, unspecified; I48.91 Unspecified atrial fibrillation; E78.5 Hyperlipidemia, unspecified; I10 Essential (primary) hypertension; F31.9 Bipolar disorder, unspecified; F41.9 Anxiety disorder, unspecified
CPT/HCPCS: 80053; 80185; 82553; 84484; 85025; 93005; 96361; 96374; J1165; J2405

== ENCOUNTER 2017-07-07 08:23 | Emergency (ER) | payer MEDICARE, MEDICAID ==
[2017-07-07 08:37] LABS: #Basophils 0.1 thou/uL (0.0-0.2); #Eosinphils 0.1 thou/uL (0.0-0.7); #Lymphocytes 1.1 thou/uL (1.20-3.40); #Monocytes 0.7 thou/uL (0.11-0.59); #Neutrophils 3.7 thou/uL (1.40-6.50); %Basophils 1.2 % (0.0-1.0); %Eosinophils 1.1 % (0.0-10.0); %Lymphocytes 19.5 % (21.0-51.0); %Monocytes 12.7 % (0.0-10.0); %Neutrophils 65.4 % (42.0-75.0); Hemoglobin 12.2 g/dL (12.0-16.0); Mean Corpuscular HGB CONC 31.5 g/dL (32.0-36.0); Mean Corpuscular Hemoglobin 25.6 pg (27.0-31.0); Mean Corpuscular Volume 81.4 fl (81.0-99.0); Mean Platelet Volume 7.1 fL (7.4-10.4); Platelet Count 384 thou/uL (130-400); RBC Distribution Width 20.6 % (11.5-14.5); Red Blood Cell (RBC) Count 4.76 mill/uL (4.20-5.40); White Blood Cell (WBC) Count 5.6 thou/uL (4.8-10.8)
[2017-07-07 09:06] LABS: INR-International Normal Ratio 1.4; PTT 34.9 SEC (22.9-36.1); Prothrombin Time 17.1 SEC (12.0-14.7)
[2017-07-07] MEDS ORDERED: Aspirin 300 MG Suppository ONE (09:13)
[2017-07-07 09:15] LABS: Anisocytosis MODERATE=16-30 cells (100X) (0-5/hpf); Burr Cells SLIGHT = 2-5 cells (100X) (0-1/hpf); Elliptocytes SLIGHT = 2-5 cells (100X) (0-1/hpf); Hypochromia SLIGHT = 6-15 cells (100X) (0-5/hpf); MDiff Complete? YES; PLT Morphology Comment Appears Adequate; Poikilocytosis SLIGHT = 6-15 cells (100X) (0-5/hpf); Target Cells SLIGHT = 2-5 cells (100X) (0-1/hpf)
[2017-07-07 09:16] LABS: ALT (SGPT) 13 U/L (8-55); AST (SGOT) 13 U/L (5-34); Albumin 3.2 g/dL (3.5-5.0); Alkaline Phosphatase 240 U/L (40-150); Anion Gap 19 mmol/L (10-20); BUN (Urea Nitrogen) 40 mg/dL (7.0-18.7); Bilirubin, Total 0.7 mg/dL (0.2-1.2); Calc. Creatinine Clearance 0 mL/min (70-130); Calcium 9.1 mg/dL (7.8-10.44); Carbon Dioxide 21 mmol/L (22-29); Chloride 91 mmol/L (98-107); Estimated GFR-MDRD 46; Globulin 5.2 g/dL (2.4-3.5); Glucose 114 mg/dL (70-105); Potassium 5.5 mmol/L (3.5-5.1); Protein, Total 8.4 g/dL (6.0-8.3); Sodium 125 mmol/L (136-145)
[2017-07-07 09:17] LABS: CKMB 0.9 ng/mL (0-6.6); Troponin I 0.181 ng/mL (< 0.028)
--- NOTE | 2017-07-07 22:46 | CT ---
CT OF THE BRAIN WITHOUT CONTRAST 07/07/17 Comparison is made with a prior CT of 01/16/15. An area of encephalomalacia in the left frontal lobe is noted as on the prior study. There has been a prior frontal craniotomy. No acute bleeding, mass or edema was seen. There was no sign of acute st roke, though sensitivity to such would be low in this patient particularly with some motion artifact present. IMPRESSION: Chronic changes including left frontal encephalomalacia. No definite acute findings. If clinical sym ptoms are suggestive of stroke, MRI would be needed to show finer detail. POS: HOME
== END 2017-07-07 09:28 | disposition short-term general hospital (02) ==
LOC: BURERS 08:23
DX: I63.9 Cerebral infarction, unspecified (principal); I48.91 Unspecified atrial fibrillation; E78.5 Hyperlipidemia, unspecified; I10 Essential (primary) hypertension; F41.9 Anxiety disorder, unspecified; F31.9 Bipolar disorder, unspecified
CPT/HCPCS: 36415; 36416; 70450; 80053; 82553; 84484; 85025; 85610; 85730; 93005